=== PATIENT | female | born 1935 | race Caucasian/White ===

== ENCOUNTER → 2016-08-29 | Outpatient (CLI) | payer OTHER | LOC: BMCIMAGING 15:35 | PROVIDERS: ATTEND Internal Medicine Rheumatology | DX: M19.041 Primary osteoarthritis, right hand (principal); M19.042 Primary osteoarthritis, left hand ==

== ENCOUNTER → 2016-11-10 | Outpatient (CLI) | payer OTHER | LOC: BMCIMAGING 11:46 | PROVIDERS: ATTEND Emergency Medicine | DX: R91.8 Other nonspecific abnormal finding of lung field (principal); R05 Cough ==

== ENCOUNTER → 2016-11-18 | Outpatient (CLI) | payer OTHER | LOC: BMCIMAGING 12:25 | PROVIDERS: ATTEND Internal Medicine | DX: R05 Cough (principal); R53.83 Other fatigue; R91.8 Other nonspecific abnormal finding of lung field ==

== ENCOUNTER 2016-11-19 11:16 | Emergency (ER) | payer OTHER ==
[2016-11-19 11:28] VITALS: RESP 18
--- NOTE | 2016-11-19 12:53 | CPEKG ---
Heart Rate: 50 RR Interval: 1200 P-R Interval: 160 QRSD Interval: 72 QT Interval: 444 QTC Interval: 405 P [place]: 52 QRS [place]: 67 T Wave [place]: 80 EKG Severity - BORDERLINE ECG - EKG Impression: SINUS RHYTHM EKG Impression: BORDERLINE R WAVE PROGRESSION, ANTERIOR LEADS Electronically Signed By: Veronique Ponce 19-Nov-2016 20:51:48
--- NOTE | 2016-11-19 13:12 | EDPHY ---
H & P Time Seen by Provider: 11/19/16 12:59 HPI/ROS: CHIEF COMPLAINT: Cough and congestion HISTORY OF PRESENT ILLNESS: 81-year-old female presents with a 3 day history of cough and congestion. Onset of sore throat, nasal congestion and a moist cough 3 days ago. The cough has been persistent since then. She saw her primary care physician yesterday. Chest x-ray revealed bilateral pneumonia. She continues to have a moist cough today. She called her primary care physician's office and the office staff told her to come to the emergency department. No associated fever or shortness of breath. She is tolerating oral fluids well. No prior history of pneumonia. REVIEW OF SYSTEMS: Constitutional: No fever, no chills Eyes: No visual changes Respiratory: no shortness of breath Cardiac: No chest pain Gastrointestinal: No nausea, no vomiting, no abdominal pain Genitourinary: no dysuria Musculoskeletal: No leg pain or swelling Skin: No rash Neurological: No headache, no weakness Psychiatric: No depression Past Medical/Surgical History: Rheumatoid arthritis Dementia Social History: PCP Dr. Sadia Blackwell Smoking Status: Never smoked Physical Exam: General Appearance: Alert, pleasant, well-appearing Eyes: Pupils equal and round, no conjunctival pallor or injection ENT, Mouth: Mucous membranes moist Neck: Normal inspection Respiratory: Lungs are clear to auscultation, no wheezing, rhonchi or rales Cardiovascular: Regular rate and rhythm Gastrointestinal: Abdomen is soft and nontender Neurological: A&O, nonfocal, normal gait Skin: Warm and dry, no rash Extremities: Nontender, no pedal edema Psychiatric: Mood and affect normal Constitutional: Initial Vital Signs Temperature (C) 36.5 C 11/19/16 11:25 Heart Rate 60 11/19/16 11:25 Respiratory Rate 18 11/19/16 11:25 Blood Pressure 112/55 L 11/19/16 11:25 O2 Sat (%) 93 11/19/16 11:25 O2 Delivery Mode Room Air Allergies/Adverse Reactions: acetaminophen [From Vicodin] Allergy (Intermediate, Verified 11/19/16 11:24) DIZZY/ NAUSEATED oxycodone HCl [From Percocet] Allergy (Intermediate, Verified 11/19/16 11:24) DIZZY/NAUSEATED hydrocodone bitartrate [From Vicodin] Allergy (Verified 11/19/16 11:24) Home Medications: Medication Instructions Recorded Methotrexate 01/31/13 [place] 01/31/13 Tramadol 01/31/13 Medical Decision Making - Diagnostics Imaging Results: Imaging Impressions Chest X-Ray 11/19/16 12:34 Impression: Perihilar bronchitis with mild subsegmental atelectasis and/or infiltrate(s) in the medial right middle lobe and in the inferolateral lingula, similar to a study of 11/18/2016 but new and/or progressive since 11/10/2016. ED Course/Re-evaluation: Chest x-ray reviewed by me. The patient's vital signs are normal today, including oxygen saturation. She is well appearing. I do not feel that testing /imaging indicated. Discussed with Dr. Blackwell, started Levaquin 2 days ago, will f/u with pt in office tomorrow. Departure - Departure Disposition: Home, Routine, Self-Care Clinical Impression: Pneumonia Qualifiers: Pneumonia type: due to unspecified organism Laterality: bilateral Lung location : unspecified part of lung Qualified Code(s): J18.9 - Pneumonia, unspecified organism Condition: Good Instructions: Pneumonia (ED) Referrals: Sadia Blackwell MD [Primary Care Provider] - 1 day without fail
[2016-11-19 14:07] VITALS: BP 142/69; PULSE 69; TEMP 98.6; O2SAT 96
== END 2016-11-19 14:05 | disposition home or self-care (01) ==
DX: J18.9 Pneumonia, unspecified organism (principal)

== ENCOUNTER → 2017-03-27 | Outpatient (CLI) | payer OTHER | LOC: BMCIMAGING 15:08 | PROVIDERS: ATTEND Internal Medicine Pulmonary Disease | DX: J47.9 Bronchiectasis, uncomplicated (principal); J98.8 Other specified respiratory disorders ==

== ENCOUNTER → 2017-04-27 | Outpatient (CLI) | payer OTHER | LOC: BMCIMAGING 11:47 | PROVIDERS: ATTEND Internal Medicine | DX: J40 Bronchitis, not specified as acute or chronic (principal) ==

== ENCOUNTER → 2017-11-26 | Outpatient (CLI) | payer OTHER | LOC: BMCIMAGING 10:53 | PROVIDERS: ATTEND Internal Medicine Pulmonary Disease | DX: J40 Bronchitis, not specified as acute or chronic (principal) ==

== ENCOUNTER → 2018-06-15 | Outpatient (CLI) | payer OTHER | LOC: FIMAGING 10:21 | PROVIDERS: ATTEND Internal Medicine | DX: Z13.820 Encounter for screening for osteoporosis (principal); M81.0 Age-related osteoporosis without current pathological fracture; Z78.0 Asymptomatic menopausal state ==

== ENCOUNTER → 2018-09-10 | Outpatient (CLI) | payer OTHER | LOC: BMCIMAGING 15:43 ==